=== PATIENT | male | born 1965 ===

== ENCOUNTER 2020-08-30 05:42 | Outpatient (CLI) | payer OTHER ==
[~2020-08-30] VITALS: Ht 165.1 cm; Wt 82.3 kg
[2020-08-30] MEDS ORDERED: PANT40TA52 PO (14:43)
[2020-08-30] MEDS ORDERED: PANT20TA18 PO (14:49)
== END 2020-08-30 14:50 | disposition home or self-care (01) ==
LOC: PREOP 05:42
PROVIDERS: ATTEND Surgery
DX: Z01.818 Encounter for other preprocedural examination (principal)

== ENCOUNTER 2020-09-03 07:10 | Day surgery (SDC) | payer OTHER ==
[2020-09-03] VITALS (10 sets, daily range): BP systolic 106–130; BP diastolic 69–81
[~2020-09-03] VITALS: Ht 165.1 cm; Wt 82.3 kg
[~2020-09-03 07:10] MED LIST: PANT20TA18 PO; PANT40TA52 PO; ceFAZolin 2 GM IV Premixed 50 ML IV ONE
[2020-09-03] MEDS ORDERED: LIDOCAINE/EPI 1%-1:100,000 (XYLOCAINE) 20ML ONE ×2 (07:22→09:04)
[2020-09-03] MEDS ORDERED: ceFAZolin 2 GM IV Premixed 50 ML ONE (07:50)
[2020-09-03] MEDS: LACTATED RINGERS 1,000 ML IV PRN ×2 (08:10→09:12)
[2020-09-03] MEDS ORDERED: proPOfol 200 MG/20 ML (DIPRIVAN) VIAL IV ONE (08:34)
[2020-09-03] MEDS ORDERED: LIDOCAINE PF 2% 5 ML (XYLOCAINE) VIAL ONE (08:34)
[2020-09-03] MEDS ORDERED: MIDAZOLAM 2 MG/2 ML (VERSED) VIAL ONE (08:34)
[2020-09-03] MEDS ORDERED: fentaNYL INJ 100 MCG/2 ML AMP ONE (08:34)
[2020-09-03] MEDS ORDERED: ONDANSETRON 4 MG/2 ML (SDV) Z0FRAN ONE (08:34)
--- NOTE | 2020-09-03 08:37 | Progress Note-Pre Operative ---
Pre-Operative Progress Note H&P Reviewed The H&P was reviewed, patient examined and no changes noted. Time Seen by Provider: 08:33 Date H&P Reviewed: Sep 03, 2020 Time H&P Reviewed: 08:33 Pre-Operative Diagnosis: chasidy-anal masses DIONICIO LYNNE DO Sep 03, 2020 08:37
--- NOTE | 2020-09-03 09:29 | Progress Note-Post Operative ---
Post-Operative Progess Note Surgeon (s)/Electrical Design Technician (s) Surgeon DIONICIO LYNNE DO Electrical Design Technician: none Pre-Operative Diagnosis chasidy-anal masses Post-Operative Diagnosis same plus anal fistula Procedure & Operative Findings Date of Procedure 09/03/20 Procedure Performed/Findings Partial Fistulectomy Anal Seton placement Digital rectal exam under anesthesia Anesthesia Type LMA Estimated Blood Loss Estimated blood loss (mL): scant Specimens/Packing Specimens Removed chasidy-anal mass x 2, portion of fistula tract DIONICIO LYNNE DO Sep 03, 2020 09:29
[2020-09-03] MEDS ORDERED: ACHD5005 PO (09:30)
--- NOTE | 2020-09-03 09:33 | Discharge Inst-Surgical ---
Discharge Inst-Surgical Depart Medication/Instructions New, Converted or Re-Newed RX: Transmitted to Pharmacy Patient Instructions Follow up Appt: Make appointment for 1 week. [phone] Instructions: May shower in 24 hours, Sitz bath twice daily. Use incentive spirometer at home as directed. No Smoking Skin/Wound Care: May remove bandages in am. You need to leave the sutures in place, they will fall out on their own. Symptoms to Report: Appetite Changes, Extremity Discoloration, Numbness/Tingling, Swelling Increased, Bleeding Excessive, Eyesight Changes, Pain Increased, Urine Color Change, Constipation(Persistent), Fever over 101 degree F, Pain/Pressure in chest, Urinating Difficulty, Cough Up/Vomit Blood, Heart Beat Irreg/Pounding, P ain/Pressure in jaw, Cramps in feet or legs, Lightheadedness, Pain/Pressure in shoulder, Diarrhea(Persistent), Memory Changes Suddenly, Questions/Concerns, Weight gain consecutive days, Dizziness/Fainting, Nausea/Vomiting, Shortness of Breath, Weight gain over 2 pounds If questions or concerns contact your physician Or seek help at emergency department. Activity Activity as Tolerated: Yes Activity Instructions: Avoid Stress to Incision Driving Instructions: No Driving/Refer to Dr. Quintero Discharge Diet: No Restrictions Diet After 24 Hours: Clear Liquid if Nauseous If Any Problems/Questions/Issu: Contact Your Physician, Go to Emergency Room Skin/Wound Care Infection Signs and Symptoms: Increased Redness, Foul Odor of Wound, Increased Drainage, Skin Itchy or Has a Rash, Increased Swelling, Temperature Above 101 F Bathing Instructions: Shower Stitches/[place]/Dermabond Dis: Care of Stitches DIONICIO LYNNE DO Sep 03, 2020 09:33
--- NOTE | 2020-09-13 07:53 | Anesthesia-General Post-Op ---
General Significant Intra-Op Events Notes post date note 09-03-20 at 1030 Post Op Complications Complications None Follow Up Care/Instructions Patient Instructions None needed. Anesthesia/Patient Condition Patient Condition Patient is doing well, no complaints, stable vital signs, no apparent adverse anesthesia problems. No complications reported per nursing. MANGO MUÑIZ CRNA Sep 13, 2020 07:53
--- NOTE | 2020-09-16 03:13 | OPERATIVE REPORT ---
DATE OF SERVICE: 09/03/2020 PREOPERATIVE DIAGNOSIS: Anal masses. POSTOPERATIVE DIAGNOSES: Anal masses, anal fistula. PROCEDURES: 1. Partial fistulectomy. 2. Seton placement. 3. Digital rectal exam under anesthesia. SURGEON: Lito Duran DO PROCESS MACHINE OPERATOR: None. ANESTHESIA: LMA. SPECIMEN: 1. Perianal mass x2. 2. Portion of fistula tract. BLOOD LOSS: Scant. FLUIDS: Per anesthesia. POSTOPERATIVE CONDITION: Stable. INDICATION FOR PROCEDURE: The patient is a 55-year-old male who said he had 2 masses on his anus. They were getting bigger. He denied any drainage and wanted to get them looked at and removed. FINDINGS: The patient had 2 anal masses, but further exam turned out to be fistulas, one of them was suprasphincteric, so I had to place a Seton. PROCEDURE NOTE: After informed consent was obtained, the patient was brought to the operating room, placed on the table in lithotomy position. He was sterilely prepped and draped in normal fashion. Local was used to perform ischial tuberosity block as well as blocks around the anus. There were two masses, one large one at the 7 o'clock position and then another one in the 3-4 o'clock position. Digital rectal exam under anesthesia really could not see anything on the inside, but was concerned this could be a fistula, started with the larger of the 2 masses at 7-8 o'clock position, started cutting this off and then as I grasped this and cutting with Bovie electrocautery noted what looked like a fistula tract or a tube, used a lacrimal probe and able to gently follow this tube and went into the rectum. This was above the sphincter and so at this point elected to place an 0 silk double suture doubled up and then tied this tight around this area, so there by placing the Seton. Went to the other mass at 3-4 o'clock, which was also beginning of the fistula, but could not find it where it went in. This was cut off with Bovie electrocautery, performed superficial fistulectomy on both of these to cut the portion of the tract and the one on the right was subcutaneous one at the 3-4 o'clock position. Copiously irrigated with normal saline, placed a Gelfoam with lidocaine jelly into the rectum and then placed a pad to hold this in place. He was then transferred to recovery room in stable condition. Sponge, instrument and needle count correct at the end of the case. Job ID: [id number] DocumentID: [id number] Dictated Date: 09/15/2020 15:57:06 Per Diem Registered Nurse Date: 09/16/2020 03:13:17 Dictated By: LITO DURAN DO
== END 2020-09-03 12:35 | disposition home or self-care (01) ==
LOC: SDC 07:10
PROVIDERS: ATTEND Surgery
DX: K62.89 Other specified diseases of anus and rectum (principal); K60.3 Anal fistula; E78.5 Hyperlipidemia, unspecified; K21.9 Gastro-esophageal reflux disease without esophagitis; D48.5 Neoplasm of uncertain behavior of skin; F17.210 Nicotine dependence, cigarettes, uncomplicated; Z83.3 Family history of diabetes mellitus
CPT/HCPCS: 87081; 88304

== ENCOUNTER 2020-12-29 05:51 | Outpatient (CLI) | payer OTHER ==
[~2020-12-29] VITALS: Ht 170 cm; Wt 82.1 kg
[~2020-12-29 05:51] MED LIST changes: +ACHD5005 PO; -ceFAZolin 2 GM IV Premixed 50 ML IV ONE
[2020-12-31] MEDS ORDERED: ATOR80TA76 PO (12:54)
== END 2021-01-03 11:58 | disposition home or self-care (01) ==
LOC: PREOP 05:51
PROVIDERS: ATTEND Surgery
DX: Z01.818 Encounter for other preprocedural examination (principal)

== ENCOUNTER 2021-01-07 11:02 | Day surgery (SDC) | payer OTHER ==
[~2021-01-07] VITALS: Ht 170.2 cm; Wt 82.2 kg
[~2021-01-07 11:02] MED LIST changes: +ATOR80TA76 PO
[2021-01-07] MEDS ORDERED: LACTATED RINGERS 1,000 ML IV ONE (11:08)
[2021-01-07 11:15] VITALS: BP 127/84
[2021-01-07] MEDS ORDERED: LACTATED RINGERS 1,000 ML IV STA (11:19)
[2021-01-07] MEDS ORDERED: HURRICAINE EXT TUBE (BENZOCAINE) XX PRN (11:30)
--- NOTE | 2021-01-07 11:55 | Progress Note-Pre Operative ---
Pre-Operative Progress Note H&P Reviewed The H&P was reviewed, patient examined and no changes noted. Time Seen by Provider: 11:47 Date H&P Reviewed: Jan 07, 2021 Time H&P Reviewed: 11:47 Pre-Operative Diagnosis: Gastritis DIONICIO LYNNE DO Jan 07, 2021 11:55
[2021-01-07] MEDS ORDERED: proPOfol 200 MG/20 ML (DIPRIVAN) VIAL IV ONE (13:01)
[2021-01-07 13:20] VITALS: BP 125/78
[2021-01-07 13:25] VITALS: BP 117/89
--- NOTE | 2021-01-07 13:26 | Progress Note-Post Operative ---
Post-Operative Progess Note Surgeon (s)/Appliance Mechanic (s) Surgeon DIONICIO LYNNE DO Appliance Mechanic: none Pre-Operative Diagnosis Gastritis, hx of h. pyloris Post-Operative Diagnosis Gastritis Hiatal hernia - very small Gastric Polyp Procedure & Operative Findings Date of Procedure 01/07/21 Procedure Performed/Findings EGD with bx EGD with Hot bx removal of polyp PROCEDURE NOTE: After informed consent was obtained, the patient was brought to the endoscopy suite, placed in bed in left lateral decubitus position. He was administered IV sedation by the RAILWAY STATION MANAGER who then monitored vitals the entire time, heart rate, blood pressure and pulse ox and the scope was inserted down the mouth through the esophagus into the stomach. Pushed into the stomach, pushed past the antrum into the duodenum. Duodenum looked good. Pulled back and noted some mild gastritis; did a biopsy of the antrum. Then retroflexed the scope, saw very small sliding hiatal hernia (could see the GE jxn sliding in and out), took a picture of this and then pulled the scope into the GE junction. Did a biopsy of the GE junction. I also noted a polyp in the body of the stomach, elected to do a hot biopsy to completely remove this. Took it off in two bites. Suctioned all the air out of the stomach. At this point pulled the scope up the esophagus and out the mouth. The patient tolerated the procedure, and he recovered in endoscopy suite. Anesthesia Type IV sedation by RAILWAY STATION MANAGER Estimated Blood Loss Estimated blood loss (mL): scant Specimens/Packing Specimens Removed antral bx GE jxn bx Cardia bx Gastric Polyp DIONICIO LYNNE DO Jan 07, 2021 13:26
--- NOTE | 2021-01-07 13:28 | Endoscopy Discharge Instruct ---
Endo Procedure/Findings Findings 1.: Gastritis 2.: Hiatal Hernia 3.: Polyp (Gastric) Discharge Instructions - Activity: You might feel a little sleepy until tomorrow. This is due to the medicine you received to relax you. Until tomorrow, you should: NOT drive a car, operate machinery or power tools. NOT drink any alcoholic beverages. NOT make any important decisions or sign importortant papers. Do not return to work until tomorrow, unless otherwise instructed. Resume previous activities tomorrow. Diet: Start by taking liquids. If you tolerate liquids, advance to solid food. 1.: EGD in 3 years Notify Physician - If you experience excessive bleeding, unusual abdominal pain, fever, or chest pain, contact your doctor immediately. DIONICIO LYNNE DO Jan 07, 2021 13:27
--- NOTE | 2021-01-07 13:52 | Anesthesia-General Post-Op ---
MAC Patient Condition Mental Status/LOC: Same as Preop Cardiovascular: Satisfactory Nausea/Vomiting: Absent Respiratory: Satisfactory Pain: Controlled Complications: Absent Post Op Complications Complications None Follow Up Care/Instructions Patient Instructions None needed. Anesthesiology Discharge Order Discharge Order Patient is doing well, no complaints, stable vital signs, no apparent adverse anesthesia problems. No complications reported per nursing. KRISTAL BRAY CRNA Jan 07, 2021 13:52
[2021-01-07 14:08] VITALS: BP 148/91
== END 2021-01-07 14:47 | disposition home or self-care (01) ==
LOC: ENDO 11:02
PROVIDERS: ATTEND Surgery
DX: K29.50 Unspecified chronic gastritis without bleeding (principal); K44.9 Diaphragmatic hernia without obstruction or gangrene; K31.7 Polyp of stomach and duodenum; K21.9 Gastro-esophageal reflux disease without esophagitis; F17.210 Nicotine dependence, cigarettes, uncomplicated; Z79.899 Other long term (current) drug therapy; Z86.19 Personal history of other infectious and parasitic diseases